=== PATIENT | female | born 1960 | race Caucasian/White ===

== ENCOUNTER 2022-01-15 08:08 | Emergency (ER) | payer OTHER, SELFPAY ==
--- NOTE | 2022-01-15 08:09 | ED.URI ---
HPI - URI/Sore Throat General Stated Complaint: covid positive Time Seen by Provider: 01/15/22 08:09 Source: patient Mode of arrival: ambulatory Limitations: no limitations History of Present Illness HPI Narrative: Ms. Mcghee is a 61-year-old female patient presenting to the clinic today with complaints of testing positive for COVID a home. She reports she is unaware of when her symptoms started. She has reports that she is feeling better. Complaints of head cold with sinus congestion and dry cough. She denies any fever, chills, shortness breath, or chest pain MD elicited complaint: cough and nasal congestion Related Data Home Medications Medication Instructions Recorded Confirmed divalproex 250 mg tablet,delayed 250 mg PO DAILY 01/15/22 01/15/22 release Allergies Allergy/AdvReac Type Severity Reaction Status Date / Time No Known Allergies Allergy Verified 01/15/22 08:32 Review of Systems Review of Systems: Pertinent positives per HPI. Patient denies any fever, chills, rash, headache, visual changes, dizziness, cough, shortness of breath, chest pain, palpitations, nausea, vomiting, diarrhea, constipation, abdominal pain, or any urinary issues. PMFSH Comments At the time of my signature, I reviewed and agree with the nursing past medical, surgical, social, and family history. There is no relevant family history pertinent to the patient complaint. Exam Narrative: General: Well-developed, well nourished, in no apparent distress Head: Normocephalic, atraumatic Eyes: Pupils equally round and reactive to light bilaterally, EOM intact, sclera and conjunctive clear, no discharge, lids normal Ears: TMs intact and clear, ear canals clear, no drainage, grossly hearing normal. Nose: Nares patent, clear nasal discharge, no inflammation, no sinus tenderness. Mouth: Oral pharynx without lesions or masses, good dentition, MMM. Post nasal drip Neck: Supple, trachea midline, no enlargement of anterior or posterior cervical nodes, no thyroid masses or goiter palpable. Cardio: Regular rate and rhythm, s1 and s2 normal, no murmur appreciated. Resp: Clear to auscultation bilaterally, no rhonchi, rales, wheezing or rubs Course Course Emergency Course: Portions of this record may have been created with voice recognition software. Level of Care: Express Care Visit Vital Signs Vital signs: Vital signs reviewed MDM - URI/Sore Throat MDM Narrative Medical decision making narrative: At the time of visit patient is resting comfortably in exam table. Discussed quarantine time with patient and supportive measures and she voiced understanding of discharge instructions. I do not feel that she is a candidate for antivirals at this time as her symptoms are very mild and improving. Differential Diagnosis Differential diagnosis: Likely upper respiratory infection, otitis media, sinusitis, viral infection, bronchitis, influenza, pharyngitis and other (Covid) Discharge Plan Discharge Clinical Impression: COVID-19 Patient Disposition: Home, Self-Care Condition: Stable Instructions: Antibiotic Form, COVID-19 (Coronavirus Disease 2019) (ED), How to Recover from COVID-19 at Home (ED) Additional Instructions: I do not feel that you need antivirals at this time as your symptoms are improving and are very mild May take cortices in HBP for cough/cold symptoms Increase fluids and stay well hydrated Tylenol/motrin for pain/fever Flonase and OTC antihistamines as directed Vicks vapor rub to open sinuses Sinus rinses for congestion Cepacol spray, cough drops, throat lozenges, warm tea with honey/lemon, gargle salt water to soothe throat BRAT diet for diarrhea Clear liquids x 24 hours then advance as tolerated for nausea/vomiting Go to the ED if you develop a worsening in your condition- high fever not controlled by Tylenol or Motrin, dehydration, weakness, lethargy, shortness of breath, or chest pain. Foll
[2022-01-15 08:19] VITALS: BP 144/59; PULSE 73; RESP 16; TEMP 36.6; O2SAT 100
== END 2022-01-15 08:50 | disposition home or self-care (01) ==
LOC: EXPGOSH 08:11
PROVIDERS: Emergency Provider Nurse Practitioner Family; PCP Family Medicine
DX: U07.1 COVID-19 (principal)
CPT/HCPCS: 99211; G0463

== ENCOUNTER 2022-04-07 08:53 | Emergency (ER) | payer OTHER, SELFPAY ==
--- NOTE | 2022-04-07 08:55 | ED.EXTPRO ---
HPI - Extremity Problem General Chief complaint: Extremity Problem,Nontraumatic Stated complaint: swollen lt forearm Time Seen by Provider: 04/07/22 08:55 Source: patient Mode of arrival: ambulatory Limitations: no limitations History of Present Illness HPI Narrative: Ms. Mcghee is a 62-year-old female patient presenting to clinic today with complaints of a swollen left forearm x1 week. She reports knotted area on her arm showed up over the last few days however her arm has been tender for the past week. She denies any known injury but does have some redness and swelling to the lateral left forearm. Related Data Home Medications Medication Instructions Recorded Confirmed divalproex 250 mg tablet,delayed 250 mg PO DAILY 01/15/22 01/15/22 release Allergies Allergy/AdvReac Type Severity Reaction Status Date / Time No Known Allergies Allergy Verified 04/07/22 09:17 Review of Systems Review of Systems: Pertinent positives per HPI. Patient denies any fever, chills, rash, headache, visual changes, dizziness, cough, runny nose, sore throat, shortness of breath, chest pain, palpitations, nausea, vomiting, diarrhea, constipation, abdominal pain, or any urinary issues. PMFSH Comments At the time of my signature, I reviewed and agree with the nursing past medical, surgical, social, and family history. There is no relevant family history pertinent to the patient complaint. Exam Narrative: General: Well-developed, well nourished, in no apparent distress Head: Normocephalic, atraumatic. Cardio: Regular rate and rhythm, s1 and s2 normal, no murmur appreciated. Resp: Clear to auscultation bilaterally, no rhonchi, rales, wheezing or rubs. Musculoskeletal: No deformity, mild redness and swelling to the lateral left forearm, small grape size knotted area to the lateral forearm that is tender to palpation and appears bruised, grossly normal range of motion, muscle strength strong and equal, radial peripheral pulse strong, no cyanosis, normal gait and station Course Course Emergency Course: Portions of this record may have been created with voice recognition software. Level of Care: Express Care Visit Vital Signs Vital signs: Vital Signs Temperature 36.4 C 04/07/22 09:02 Pulse Rate 70 04/07/22 09:02 Respiratory Rate 16 04/07/22 09:02 Blood Pressure 132/72 04/07/22 09:02 Pulse Oximetry 100 04/07/22 09:02 Oxygen Delivery Room Air 04/07/22 09:02 Temperature 36.4 C 04/07/22 09:02 Pulse Rate 70 04/07/22 09:02 Respiratory Rate 16 04/07/22 09:02 Blood Pressure 132/72 04/07/22 09:02 Pulse Oximetry 100 04/07/22 09:02 Oxygen Delivery Room Air 04/07/22 09:02 Vital signs reviewed Transfer Transfered to: [facility] Transportation: Other (Private car) Transfer rationale: Left forearm swelling, redness, tender knot rule out DVT Accepting physician: Dr Cardona Transfer comments: Transfer via private car MDM - Extremity (Nontraumatic) MDM Narrative Medical decision making narrative: At the time of visit patient is resting comfortably on the exam table. She denies any chest pain or shortness of breath. Recommend transfer to the ER for evaluation to rule out DVT of the left forearm. Patient is agreeable for transfer. Patient would like to go to [facility] in [place], [place]. Report given to Mirta dias RN at [facility] for continuity of care and Dr. Cardona accepts patient for transfer. Differential Diagnosis Differential diagnosis: Likely cellulitis, superficial thrombophlebitis and deep venous thrombosis of upper extremity Discharge Plan Discharge Clinical Impression: Localized swelling of left forearm, Mass of left upper extremity Patient Disposition: Acute Care Hospital Condition: Stable Instructions: Antibiotic Form Prescriptions: No Action divalproex 250 mg tablet,delayed release (DR/EC) 250 mg PO DAILY Fo
[2022-04-07 09:02] VITALS: BP 132/72; PULSE 70; RESP 16; TEMP 36.4; O2SAT 100
== END 2022-04-07 09:29 | disposition short-term general hospital (02) ==
PROVIDERS: Emergency Provider Nurse Practitioner Family; PCP Family Medicine
DX: R22.32 Localized swelling, mass and lump, left upper limb (principal)
CPT/HCPCS: 99212; G0463